=== PATIENT | female | born 1935 | race Caucasian/White ===

== ENCOUNTER 2018-06-18 08:26 | Emergency (ER) | payer MEDICARE ==
[~2018-06-18] VITALS: Ht 154.9 cm; Wt 49.5 kg
[2018-06-18 08:43] VITALS: BP 130/57; Ht 154.9 cm; Wt 49.5 kg
[2018-06-18] MEDS ORDERED: GLIPIZIDE10 MG PO (08:45)
[2018-06-18] MEDS ORDERED: GLUCOPHAGE500 MG PO (08:45)
[2018-06-18] MEDS ORDERED: VITAMIN B-225 MG PO (08:45)
== END 2018-06-18 09:50 | disposition home or self-care (01) ==
LOC: D.ER 08:26
DX: S70.02XA Contusion of left hip, initial encounter (principal); W19.XXXA Unspecified fall, initial encounter; E11.9 Type 2 diabetes mellitus without complications

== ENCOUNTER → 2019-09-08 18:49 | Outpatient (CLI) | payer MEDICARE ==
[2018-06-18 08:43] VITALS: BMI 20.6
[~2019-09-08 18:49] MED LIST: GLIPIZIDE10 MG PO; GLUCOPHAGE500 MG PO; VITAMIN B-225 MG PO
[2019-09-08 19:25] LABS: HEMATOCRIT 29.3 % (36.0-48.0); HEMOGLOBIN 10.4 g/dL (12-16); LYMPHOCYTES 37.4 % (15-50); MCH 32.7 pg (26.0-34.0); MCHC 35.5 g/dL (31.0-37.0); MCV 92.1 fL (80.0-100.0); MEAN PLATELET VOLUME 8.4 fL (7.4-10.4); NEUTROPHILS 55.4 % (40-80); PLATELET COUNT 349 10x3/uL (130-400); RBC 3.18 10x6/uL (4.00-5.40); RDW 13.2 % (11.5-14.5); WBC 10.1 10x3/uL (4.8-10.8)
[2019-09-08 19:45] LABS: ANION GAP 13.2 mmol/L (8-16); CARBON DIOXIDE 25.1 mmol/L (21.0-32.0); CREATININE - SERUM 1.1 mg/dL (0.6-1.3); LDL-HDL RATIO 1.6 ratio (1.5-3.5); POTASSIUM - SERUM 4.3 mmol/L (3.5-5.1)
== END | disposition home or self-care (01) ==
LOC: D.LAB 18:49
PROVIDERS: ATTEND Family Medicine
DX: E11.9 Type 2 diabetes mellitus without complications (principal); E78.5 Hyperlipidemia, unspecified